=== PATIENT | female | born 1975 | race Caucasian/White ===

== ENCOUNTER 2017-02-05 00:04 | Inpatient (IN) | payer OTHER ==
--- NOTE | ~2017-02-05 | DS ---
Unit #: [id number] #: [id number] Patient: SHERRY HYMAN [id number] [facility] [address] [place] [address] [id number] MR#: [id number] NAME: SHERRY HYMAN ROOM: [facility] Age: 41 Sex: F Admission Date: 02/05/2017 : 1975 Discharge Date: 02/08/2017 Attending Physician: Austin Bates M.D. Primary Care Physician: Primary Care Physician No DISCHARGE SUMMARY REASON FOR ADMISSION The patient is a 41-year-old, , white female, admitted to the [facility] unit with depressed mood and abuse of illicitly obtained pain medication. HOSPITAL COURSE The patient was admitted to the [facility] unit and placed on suicide precautions. Her participation within therapeutic milieu was less than optimal. She did request an increase in her citalopram dose and it was increased to 40 mg daily. The patient was also begun on Norvasc 5 mg daily to address her elevation of blood pressure. By 02/08/2017, the patient's symptoms of withdrawal had cleared and she had made arrangements to [facility]. Discharge was ordered. FINAL DIAGNOSES Opioid use disorder; dysthymic disorder; hypertension. DISPOSITION ON DISCHARGE The patient is discharged on the following medications; Celexa 40 mg daily for depression, trazodone 50 mg at h.s. p.r.n. insomnia, and Norvasc 5 mg daily for hypertension. DISCHARGE INSTRUCTIONS The patient will follow through the auspices of "the [facility]." PROGNOSIS Her prognosis is considered fair. Dictated by... Austin Bates M.D. CB/bernardino TD: 02/09/2017 02:52 JOB #: [id number] Unit #: [id number] #: [id number] Patient: SHERRY HYMAN DISCHARGE SUMMARY X Austin Bates MD X DISCHARGE SUMMARY
--- NOTE | ~2017-02-05 | HP ---
Unit #: [id number] #: [id number] Patient: LATOSHA HYMAN [id number] [place] [address] [id number] MR#: [id number] NAME: LATOSHA HYMAN ROOM: [facility] Age: 41 Sex: F Admission Date: 02/05/2017 : 1975 Attending Physician: Austin Bates M.D. Admitting Physician: Austin Bates M.D. Primary Care Physician: Primary Care Physician No HISTORY AND PHYSICAL HISTORY OF PRESENT ILLNESS Latosha is a 41 year old admitted to [facility] because of her abuse of pain pills. PAST MEDICAL HISTORY 1. Long history of opioid abuse. 2. High blood pressure. 3. History of subarachnoid hemorrhage. 4. Cranial surgery to release pressure, 2011 5. History of CVA. 6. Seizure disorder PAST SURGICAL HISTORY 1. As above 2. Appendectomy 3. Tubal ligation 4. Hysterectomy 5. Breast reduction ALLERGIES Penicillin, lisinopril, IV dye, morphine. SOCIAL HISTORY Smokes one pack per day. Cuauhtemoc alcohol admits a long of opioid abuse. FAMILY HISTORY Medically noncontributory. REVIEW OF SYSTEMS CONSTITUTIONAL: No fever or chills. HEENT: Denies any sore throat, ear pain or runny nose. CARDIOVASCULAR: Denies chest pain, irregular heart rhythm or palpitations. CHEST: Denies shortness of breath or cough. No hemoptysis. GASTROINTESTINAL: Denies nausea, vomiting, diarrhea or chronic constipation. ENDOCRINE: Denies history of increased thirst or urination. No recent significant weight loss or gain. GENITOURINARY: Denies dysuria, frequency, or hematuria. SKIN: Denies any rashes. HEMATOLOGIC: Denies history of increased bleeding or bruising. MUSCULOSKELETAL: Denies any hot, swollen joints. No generalized muscle pain. NEUROLOGIC: Denies problems with vision or speech. No frequent, severe headaches. No numbness, tingling or weakness in any extremities. Denies Unit #: [id number] #: [id number] Patient: LATOSHA HYMAN loss of bladder or bowel control. CURRENT MEDICATIONS 1. Detox protocol 2. Celexa 40 mg daily PHYSICAL EXAMINATION GENERAL: Alert, well-nourished, in no apparent distress. VITAL SIGNS: Blood pressure 150/100, heart rate 62, respirations 16, temperature 98.6. WEIGHT: 156 pounds. HEIGHT: 5'4". SKIN: Warm and dry without rash or lesion. HEENT: Normocephalic. TMs not viewed. Oral and nasal passages clear. Conjunctivae clear. Pupils equal, round and reactive to light and accommodation. Extraocular movements intact. NECK: Supple without lymphadenopathy or thyromegaly. HEART: Regular rate and rhythm without murmur. LUNGS: Clear. ABDOMEN: Soft, nontender. : Not done. EXTREMITIES: No evidence of cyanosis, clubbing or edema. Moves all extremities without focal deficit. NEUROLOGICAL: Grossly within normal limits. Cranial Nerves: II: Visual tyson are intact. III, IV AND : Extraocular movements are intact. Pupils are equal, round and reactive to light. V: Facial sensation is grossly normal. VII: Facial movements and expression are normal. VIII: Auditory acuity grossly intact. IX, X: Uvula is midline. Phonation is normal. XI: Patient shrugs shoulders and turns head normally. XII: Tongue protrudes in the midline. Sensory and Motor Function: Sensory and motor sensation is grossly normal. Motor: moves all extremities well. Coordination: Gait is normal. Deep Tendon Reflexes: Intact. IMPRESSION Psychiatric admission, high blood pressure, not controlled on admission. RECOMMENDATIONS PSYCHIATRIC: Per psychiatrist. MEDICAL: 1. I see no contraindications to participating in facility's activities. 2. Norvasc 5 mg one p.o. daily first does now. MEDICAL PROGNOSIS Good. MEDICAL CONDITION Stable. Dictated by... Sapna MccallAMarichuy-Jessica. for Mónica English/kieran Unit #: [id number] #: [id number] Patient: LATOSHA HYMAN TD: 02/06/2017 00:47 JOB #: [id number] HISTORY AND PHYSICAL X Teodora Moncada HISTORY AND PHYSICAL
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
--- NOTE | ~2017-02-05 | PN ---
Unit #: [id number] #: [id number] Patient: SHERRY HYMAN [id number] [facility] [address] [place] [address] [id number] MR#: [id number] NAME: SHERRY HYMAN ROOM: [facility] Age: 41 Sex: F Admission Date: 02/05/2017 : 1975 Attending Physician: Austin Bates M.D. Admitting Physician: Austin Bates M.D. Primary Care Physician: Primary Care Physician Arely AVERY PROGRESS NOTES DATE 02/06/2017 DISCUSSION The patient has required Ativan as recently as 12 p.m. today with an elevated CIWA score of 8. We continue current treatment, and I have encouraged the patient to increase participation within the therapeutic milieu once able to do so. Dictated by... Austin Bates M.D. CB/minesh TD: 02/06/2017 14:46 JOB #: [id number] GENA GARCIA NOTES X Austin Bates MD PROGRESS NOTE
--- NOTE | ~2017-02-05 | PN ---
Unit #: [id number] #: [id number] Patient: SHERRY HYMAN [id number] [facility] [address] [place] [address] [id number] I MR#: [id number] NAME: SHERRY HYMAN ROOM: [facility] Age: 41 Sex: F Admission Date: 02/05/2017 : 1975 Attending Physician: Austin Bates M.D. Admitting Physician: Austin Bates M.D. Primary Care Physician: Primary Care Physician Arely GARCIA NOTES DATE 02/07/2017 DISCUSSION The patient is abed today and continues to complain of significant physical discomfort related to opiate withdrawal. I have encouraged her to increase participation within the therapeutic milieu. Dictated by... Austin Bates M.D. CB/john TD: 02/07/2017 16:02 JOB #: [id number] GENA GARCIA NOTES X Austin Bates MD PROGRESS NOTE
[2017-02-05 09:32] LABS: BASOPHIL% 0.5 % (0-2.5); EOSINOPHIL# 0.1 X10e3 (0-0.7); HEMOGLOBIN 14.6 gm/dL (12.0-16.0); LYMPHOCYTE# 2.7 X10e3 (1.0-3.5); LYMPHOCYTE% 32.7 % (17.0-45.0); MEAN CELL VOLUME 90.4 FL (83-96); MEAN CORPUSCULAR HEMOGLOBIN 30.7 PG (28-34); MEAN PLATELET VOLUME 9.8 FL (6.5-11.5); MONOCYTE# 0.6 X10e3 (0-1.0); MONOCYTE% 7.6 % (3.0-12.0); NEUTROPHIL# 4.8 X10e3 (1.5-7.1); NEUTROPHIL% 58.2 % (40-75); PLATELET COUNT 217 X10e3 (140-420); RED BLOOD COUNT 4.76 X10e (3.90-5.30); WHITE BLOOD COUNT 8.2 X10e3 (4.0-10.5)
[2017-02-05 09:38] LABS: DIFF IND NO
[2017-02-05 10:02] LABS: THYROID STIMULATING HORMONE 0.81 uIU/ml (0.34-5.60)
[2017-02-05 10:09] LABS: FREE THYROXIN (T4) 0.7 ng/dL (0.58-1.64)
[2017-02-05 10:19] LABS: ALBUMIN SERUM 4.6 g/dL (3.5-5.0); ALKALINE PHOSPHATASE 81 U/L (32-92); ALT (SGPT) 11 U/L (10-40); AST (SGOT) 13 U/L (10-42); BILIRUBIN,TOTAL 0.8 mg/dL (0.2-2.0); BLOOD UREA NITROGEN 13 mg/dL (9-23); BUN/CREATININE RATIO 18.57; CALCIUM SERUM 10.2 mg/dL (8.4-10.2); CARBON DIOXIDE 31 mmol/L (22-31); CHLORIDE 98 mmol/L (100-111); CREATININE SERUM 0.7 mg/dL (0.6-1.4); GLOM FILT RATE Estimated ABOVE60 mL/min (>60); GLUCOSE FASTING 99 mg/dL (70-110); POTASSIUM 4.2 mmol/L (3.5-5.1); PROTEIN TOTAL SERUM 7.4 g/dL (6.0-8.3); SODIUM 140 mmol/L (135-145)
[2017-02-07 10:40] LABS: URINE APPEARANCE CLEAR; URINE BILIRUBIN NEG (NEG); URINE BLOOD NEG (NEG); URINE COLOR DK YELLOW; URINE GLUCOSE NEG (NEG); URINE KETONE NEG (NEG); URINE LEUKOCYTE ESTERASE NEG (NEG); URINE NITRATE NEG (NEG); URINE PH 5.5 (5-8); URINE PROTEIN NEG (NEG); URINE SPECIFIC GRAVITY 1.026 (1.003-1.035); URINE UROBILINOGEN 0.2 MG/DL (NEG)
[2017-02-07 11:25] LABS: AMPHETAMINE NEG (NEG); BARBITURATES NEG (NEG); BENZODIAZEPINES POS (NEG); COCAINE NEG (NEG); MARIJUANA NEG (NEG); OPIATES POS (NEG); TRICYCLIC ANTIDEPRESSANTS NEG (NEG); U METHADONE NEG (NEG)
== END 2017-02-08 16:35 | disposition home or self-care (01) | DRG 897 ==
LOC: P1E 00:04 → POF 12:46 → P1E 12:51
PROVIDERS: Psychiatry & Neurology Psychiatry
PROC: HZ2ZZZZ Detoxification Services for Substance Abuse Treatment (ICD-10-PCS; principal; 2017-02-05)
DX: F11.10 Opioid abuse, uncomplicated (principal); F33.1 Major depressive disorder, recurrent, moderate; I10 Essential (primary) hypertension; G40.909 Epilepsy, unspecified, not intractable, without status epilepticus; Z86.73 Personal history of transient ischemic attack (TIA), and cerebral infarction without residual deficits; Z98.51 Tubal ligation status; Z90.710 Acquired absence of both cervix and uterus; Z88.0 Allergy status to penicillin; Z91.041 Radiographic dye allergy status; F17.210 Nicotine dependence, cigarettes, uncomplicated; F34.1 Dysthymic disorder
CPT/HCPCS: 80053; 80307; 81003; 84439; 84443; 84703; 85025; 86592